=== PATIENT | male | born 1960 | race Caucasian/White ===

== ENCOUNTER → 2020-07-05 | Outpatient (CLI) | payer OTHER ==
[2020-07-05 11:16] LABS: BASOPHIL % 0.4 % (0.0-0.2); EOSINOPHIL # 0.1 10^3/uL (0.0-0.2); EOSINOPHIL % 0.8 % (0.0-5.0); LYMPHOCYTES % 21.3 % (24.0-44.0); MEAN CORP HGB 30.1 pg (26-34); MONOCYTES # 0.7 10^3/uL (0.3-0.8); MONOCYTES % 9.5 % (5.0-12.0); NEUTROPHIL # 5.1 10^3/uL (1.8-7.7); NEUTROPHILS % 67.9 % (41.0-85.0); PLATELET COUNT 211 10^3/uL (150-400); RED CELL DISTRIBUTION WIDTH 13.5 % (11.5-14.5)
== END | disposition home or self-care (01) ==
LOC: LAB 11:00
DX: D75.1 Secondary polycythemia (principal)
CPT/HCPCS: 36415; 85025